=== PATIENT | male | born 1985 | race Caucasian/White ===

== ENCOUNTER 2019-07-31 12:49 | Emergency (ER) | payer OTHER ==
[~2019-07-31] VITALS: Ht 182.9 cm; Wt 104.3 kg
[2019-07-31 12:58] VITALS: BP 145/79
--- NOTE | 2019-07-31 13:04 | NUR ---
PT WHEELED TO CHAIR A
--- NOTE | 2019-07-31 13:08 | NUR ---
Patient taken to XRAY via wheelchair by tech.
--- NOTE | 2019-07-31 13:14 | NUR ---
Patient returned from XRAY. RN re-evaluating the aptient at bedside.
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
--- NOTE | 2019-07-31 13:29 | NUR ---
Dr. Linda is evaluating the patient.
[2019-07-31] MEDS ORDERED: IBUPROFEN 600 MG TAB PO ONE (13:35)
[2019-07-31] MEDS ORDERED: HYDROcodone/APAP 5/325 MG 1 TAB TAB PO ONE (13:35)
--- NOTE | 2019-07-31 13:51 | NUR ---
FALLON WRAP PLACED ON PT R ANKLE. +CSM
--- NOTE | 2019-07-31 13:52 | NUR ---
PT GIVEN INSTRUCTION ON PROPER USE OF CRUTCHES. CRUTCHES FITTED TO PT HEIGHT AND ARM LENGTH. PT GIVEN INSTRUCTION ON WALKING, DEMONSTRATED SAFE USE FOR APPROXIMATELY 40 FEET. PT STATED HE FELT COMFORTABLE WITH USE.
[2019-07-31 14:12] VITALS: BP 145/79
--- NOTE | 2019-07-31 14:12 | NUR ---
Patient discharged with v/s stable. Written and verbal after care instructions given and explained. Patient verbalized understanding. Ambulatory with steady gait. All questions addressed prior to discharge. Advised to follow up with PMD.
== END 2019-07-31 14:12 | disposition home or self-care (01) ==
LOC: MED 12:49
DX: S90.31XA Contusion of right foot, initial encounter (principal); W19.XXXA Unspecified fall, initial encounter; Y93.89 Activity, other specified; Y92.89 Other specified places as the place of occurrence of the external cause; Y99.8 Other external cause status
CPT/HCPCS: 73630; 99283